=== PATIENT | male | born 1995 | race Caucasian/White ===

== ENCOUNTER 2017-07-09 10:21 | Emergency (ER) | payer OTHER ==
[2017-07-09 10:27] VITALS: TEMP 37.9
[2017-07-09] MEDS ORDERED: IBUP-103 PO (10:57)
[2017-07-09] MEDS ORDERED: PENI-82 PO (10:57)
[2017-07-09] MEDS ORDERED: KETOROLAC TROMETHAMINE 30 MG/ML VIAL IV STA (11:00)
[2017-07-09] MEDS ORDERED: AMPICILLIN/SULBACTAM SOD INJ 3,000 MG in SODIUM CHLORIDE 0.9% 100ML 100 ML IV ONE (11:00)
[2017-07-09] MEDS ORDERED: FENTANYL CITRATE INJ 50 MCG/1 ML 2 ML VIAL IV ONE (11:00)
[2017-07-09] MEDS ORDERED: SODIUM CHLORIDE 0.9% 1000ML 1,000 ML IV STA ×2 (11:00→13:07)
[2017-07-09] MEDS ORDERED: DEXAMETHASONE **PF** INJ 10 MG/ML VIAL IV ONE (11:00)
--- NOTE | 2017-07-09 11:11 | EMERGENCY ROOM VISIT NOTE ---
History Report prepared by Ramya: Sammy Estevez Under the Supervision of: Dr. Marcelo Ashby M.D. First contact with patient: 10:34 Chief Complaint: SORETHROAT Stated Complaint: SWOLLEN THROAT History of Present Illness The patient is a 22 year old white male with a past medical history of G6PD who presents to the ED with a cc of a worsening sore throat beginning a week ago. Positive swelling, productive cough, and voice change. Negative teeth pain. He was seen at [facility] and had blood work, and he was put on penicillin. He smokes, though he has not swollen for the past couple of weeks. Review of prior blood work shows a white count of 19 progressing to 24 Source of History: patient Onset: a week ago Position: throat Quality: other (sore) Timing: worsening Associated Symptoms: + cough Note: Associated symptoms: voice change Review of Systems See HPI for pertinent positives and negatives. A total of ten systems were reviewed and were otherwise negative. Past Medical & Surgical Medical Problems: (1) G6PD deficiency Social History Smoking Status: Current Every Day Smoker Marital Status: single Housing Status: lives with roommate Occupation Status: student Current/Historical Medications Scheduled Ibuprofen Tab (Advil), 400-600 MG PO Q6H Penicillin V Potassium (Veetids), 500 MG PO TID Allergies Coded Allergies: Sulfa Antibiotics (Verified Allergy, Severe, anaphylaxis, 07/09/17) Physical Exam Vital Signs Date Time Temp Pulse Resp B/P (MAP) Pulse Ox O2 Delivery O2 Flow Rate FiO2 07/09/17 14:38 102 17 148/88 97 07/09/17 12:59 111 20 148/81 97 Room Air 07/09/17 11:33 114 17 152/93 99 Room Air 07/09/17 10:27 37.9 151 16 15/95 96 Physical Exam GENERAL: Awake, alert, well-appearing, NAD HENT: Normocephalic, atraumatic. Right sided posterior oropharyngeal swelling. Tonsillar exudate on the right side. EYES: Normal conjunctiva. Sclera non-icteric. NECK: Supple. No nuchal rigidity. FROM. No stridor. RESPIRATORY: CTAB, no rhonchi, wheezing, crackles CARDIAC: RRR, no MRG ABDOMEN: Soft, NTND, BS+ MSK: No chest wall TTP, no LE edema NEURO: GCS 15, CN 2-12 intact, moves all 4s on command SKIN: No rash or jaundice noted. Medical Decision & Procedures ER Provider Diagnostic Interpretation: Radiology results as stated below per my review and radiologist interpretation: ADDENDUM Addendum: Impression #1 should read there is also a 6 mm left peritonsillar abscess. Electronically signed by: Silver Triana M.D. 07/09/2017 1:47 PM Dictated Date/Time: 07/09/2017 1:32 PM ORIGINAL REPORT SOFT TISSUE NECK WITH HISTORY: severe sore throat, rule out peritonsillar abscess TECHNIQUE: Multiaxial CT images of the neck were performed following the use of intravenous contrast. COMPARISON STUDY: None. FINDINGS: The visualized brain parenchyma and orbits are unremarkable. There are enlarged palatine tonsils which abut at the midline resulting in approximately 50% narrowing of the airway. There is associated peripheral enhancing 3.1 x 2.1 cm right peritonsillar abscess. There is also a 6 mm left peritonsillar abscess. There is hypertrophy of the adenoid tonsils. Prevertebral soft tissues and the epiglottis are normal in thickness. Mild bilateral cervical lymphadenopathy. However, the dominant right level 2 lymph node appears to demonstrate partial necrosis. This is best in image 98. The major cervical vessels are widely patent. The parotid and submandibular glands are symmetric. The thyroid gland enhances normally. The lung apices are clear. No suspicious lytic or blastic osseous lesions. The paranasal sinuses and mastoid air cells are clear. There is a single midline supernumerary tooth within the maxilla. IMPRESSION: 1. A dominant 3.1 x 2.1 cm right peritonsillar abscess. There is also a 6 cm left perihilar times are abscess. The enlarged palatine tonsils results in approximately 50% narrowing of the airway. 2. Mild bilateral cervical lymphadenopathy which is likely reactive. However, the dominant right level 2 lymph node appears to demonstrate partial necrosis. This is slightly atypical for an infectious process. Recommend follow-up neck CT in 3 months to ensure resolution. Electronically signed by: Silver Triana M.D. 07/09/2017 1:08 PM Dictated Date/Time: 07/09/2017 12:49 PM Laboratory Results 07/09/17 11:13 Red Blood Count 5.09, Mean Corpuscular Volume 86.6, Mean Corpuscular Hemoglobin 30.5, Mean Corpuscular Hemoglobin Concent 35.1, Mean Platelet Volume 10.0, Neutrophils (%) (Auto) 86.1, Lymphocytes (%) (Auto) 4.2, Monocytes (%) (Auto) 9.1, Eosinophils (%) (Auto) 0.1, Basophils (%) (Auto) 0.1, Neutrophils # (Auto) 20.33, Lymphocytes # (Auto) 0.98, Monocytes # (Auto) 2.14, Eosinophils # (Auto) 0.03, Basophils # (Auto) 0.02 07/09/17 11:13 Test 07/09/17 11:13 White Blood Count 23.60 K/uL (4.8-10.8) Red Blood Count 5.09 M/uL (4.7-6.1) Hemoglobin 15.5 g/dL (14.0-18.0) Hematocrit 44.1 % (42-52) Mean Corpuscular Volume 86.6 fL (80-100) Mean Corpuscular Hemoglobin 30.5 pg (25-34) Mean Corpuscular Hemoglobin Concent 35.1 g/dl (32-36) Platelet Count 381 K/uL (130-400) Mean Platelet Volume 10.0 fL (7.4-10.4) Neutrophils (%) (Auto) 86.1 % Lymphocytes (%) (Auto) 4.2 % Monocytes (%) (Auto) 9.1 % Eosinophils (%) (Auto) 0.1 % Basophils (%) (Auto) 0.1 % Neutrophils # (Auto) 20.33 K/uL (1.4-6.5) Lymphocytes # (Auto) 0.98 K/uL (1.2-3.4) Monocytes # (Auto) 2.14 K/uL (0.11-0.59) Eosinophils # (Auto) 0.03 K/uL (0-0.5) Basophils # (Auto) 0.02 K/uL (0-0.2) RDW Standard Deviation 35.2 fL (36.4-46.3) RDW Coefficient of Variation 11.2 % (11.5-14.5) Immature Granulocyte % (Auto) 0.4 % Immature Granulocyte # (Auto) 0.10 K/uL (0.00-0.02) Anion Gap 7.0 mmol/L (3-11) Estimated GFR () 137.2 Estimated GFR (Non- 118.4 BUN/Creatinine Ratio 12.3 (10-20) Calcium Level 10.0 mg/dl (8.5-10.1) Laboratory results reviewed by me Medications Administered Medications (Trade) Dose Ordered Sig/Sailaja Route Start Time Stop Time Status Last Admin Dose Admin Sodium Chloride 1,000 ml @ 999 mls/hr Q1H1M STAT IV 07/09/17 11:00 07/09/17 12:00 DC 07/09/17 11:21 999 MLS/HR Dexamethasone Sodium Phosphate (Dexamethasone Inj Pf) 10 mg NOW ONCE IV 07/09/17 11:00 07/09/17 11:05 DC 07/09/17 11:19 10 MG Ampicillin Sodium/ Sulbactam Sodium 3000 mg/Sodium Chloride 108 ml @ 200 mls/hr ONE ONCE IV 07/09/17 11:00 07/09/17 11:32 DC 07/09/17 11:35 200 MLS/HR Ketorolac Tromethamine (Toradol Inj) 30 mg NOW STAT IV 07/09/17 11:00 07/09/17 11:05 DC 07/09/17 11:21 30 MG Fentanyl Citrate (Fentanyl Inj) 50 mcg NOW ONCE IV 07/09/17 11:00 07/09/17 11:05 DC 07/09/17 11:19 50 MCG Metoclopramide HCl (Reglan Inj) 10 mg NOW STAT IV. 07/09/17 12:11 07/09/17 12:12 DC 07/09/17 12:57 10 MG Sodium Chloride 1,000 ml @ 999 mls/hr Q1H1M STAT IV 07/09/17 13:07 07/09/17 14:07 DC 07/09/17 13:20 999 MLS/HR Miscellaneous Information (Nursing Verbal Med Order) 1 ea ONE ONCE N/A 07/09/17 13:30 07/09/17 13:31 DC 07/09/17 13:20 1 EA Procedure Incision & Drainage Indication: Abscess. Location: R TWISTING FRAME OPERATOR Verbal consent was obtained after the risks and benefits were explained, including but not limited to bleeding, scarring, infection, pain, and bone/joint /nerve damage. At this time, the risks of the procedure are less than the risks of NOT performing the procedure. A time out was taken and the correct patient and site identified. Cetacaine spray was sprayed into the posterior pharynx to help w/ anesthesia. The abscess was further anesthetized with 5 ml of 1% lidocaine with epinephrine. The abscess cavity was entered with a number 11 blade and no purulent material expressed, only scant blood. Upon reassessment, this was hemostatic. Given the patient's impressive gag reflex, no further attempts were made. ED Course 1046: The patient was evaluated in room C5. A complete history and physical exam was performed. 1338: I unsuccessfully attempted to drain the TWISTING FRAME OPERATOR. 1408: I discussed the patient's case with Dr. Dobbins - ENT, and he wants the patient to follow up in the clinic today. 1415: I reevaluated the patient. Discussed results and discharge instructions: he verbalized understanding and agreement. The patient is ready for discharge. Medical Decision The patient is a 22 year old white male with a past medical history of G6PD who presents to the ED with a cc of a worsening sore throat beginning a week ago. Differential diagnosis: Etiologies such as viral syndrome, tonsillitis, streptococcal pharyngitis, mononucleosis, peritonsillar abscess, retropharyngeal abscess, otitis, pneumonia , influenza, as well as others were entertained. Patient was seen and evaluated the bedside. Patient has had a sore throats for approximately 1 week's time. Patient has been seen at [facility] 2 separate times and was started on penicillin. Patient has noticed voice changes and some sore throat. On exam the patient has a noticeable obvious peritonsillar swelling. Patient did have blood work that was completed. Patient does have an elevated white count, left shift, bandemia. Patient does have full range of motion of the neck. A CT soft tissue neck was obtained. Patient does have an elevated white blood cell count and bandemia. Patient was given dexamethasone, Toradol, and Unasyn. Patient's CT did show a peritonsillar abscess in the right that was fairly large. I did attempt a bedside I&D of this as it was fairly large. Patient had a fairly impressive gag reflex which made this difficult. The procedure was unsuccessful. I did discuss the patient's case with the ear nose and throat physician repairer controller tester who suggested that the patient come over for I&D in the office. Patient was discharged to the outpatient clinic. Medication Reconcilliation Current Medication List: was personally reviewed by me Blood Pressure Screening Patient's blood pressure: Elevated blood pressure Blood pressure disposition: Elevated BP felt to be situational Consults Time Called: 1400 Consulting Physician: Dr. Mu ZUNIGA Returned Call: 1408 I discussed the patient's case with Dr. Mu ZUNIGA, and he wants the patient to follow up in the clinic today. Impression Primary Impression: Peritonsillar abscess Additional Impressions: Sore throat Encounter for smoking cessation counseling Scribe Attestation The scribe's documentation has been prepared under my direction and personally reviewed by me in its entirety. I confirm that the note above accurately reflects all work, treatment, procedures, and medical decision making performed by me. Departure Information Dispostion Home / Self-Care Referrals No Doctor, Assigned (PCP) Adam Dobbins D.O. Forms HOME CARE DOCUMENTATION FORM, IMPORTANT VISIT INFORMATION Patient Instructions ED Peritonsillar Abscess, My [facility] Additional Instructions Please return to the emergency department if you have worsening or recurrent symptoms not amenable to at-home treatment. Please call for a follow-up appointment with her primary care physician. Please take your medications as prescribed. If you have other concerns and/or complaints please feel free to also call your primary care physician's office or return the ED for further evaluation, management, and treatment. You were found to have an elevated blood pressure today (>120 sytolic or >90 diastolic). Per medicare guidelines, you need to follow up with this blood pressure screening with your Primary Care Physician (PCP). For a new PCP call [phone]. Please follow the recommendations of the research and insights executive. You received narcotic or benzodiazepene medication while in the emergency room today. This is an addictive medication that may cause drowziness as well as constipation. Do not drive, operate heavy machinery, or drink alcohol under the influence of this medication. You may take 600 mg Ibuprofen every 6 hours as needed for pain with food for no more than 2 consecutive days. You may take tylenol 1000 mg every 6 hours as needed for pain. You may take motrin and tylenol separately or at the same time. Take your medications as prescribed. If taking an antibiotic consider taking a probiotic and/or eating yogurt, but at the least, please take with food as it can cause upset stomach. If culture results are not available at discharge, if they are positive for concern of infection, you will be informed of the results as soon as they are available. If you were seen between 11pm and 7AM all radiology reads will be re-read by our in house staff. If any major discrepancies are discovered, you will be notified. You have been examined and treated today on an emergency basis only. This is not a substitute for, or an effort to provide, complete comprehensive medical care. It is impossible to recognize and treat all injuries or illnesses in a single emergency department visit. It is therefore important that you follow up closely with [facility], your PCP, and/or your specialist(s). Call as soon as possible for an appointment. Thank you for your time and consideration. I look forward to speaking with you again soon. Please don't hesitate to call us if you have any questions. Problem Qualifiers
[2017-07-09] MEDS ORDERED: OPTIRAY 320 IV PRN (11:15)
[2017-07-09 11:27] LABS: HEMATOCRIT 44.1 % (42-52); HEMOGLOBIN 15.5 g/dL (14.0-18.0); MEAN CELL VOLUME 86.6 fL (80-100); MEAN CORPUSCULAR HEMOGLOBIN 30.5 pg (25-34); MEAN CORPUSCULAR HGB CONC 35.1 g/dl (32-36); PLATELET COUNT 381 K/uL (130-400); RED CELL DISTRIBUTION WIDTH CV 11.2 % (11.5-14.5); RED CELL DISTRIBUTION WIDTH SD 35.2 fL (36.4-46.3)
[2017-07-09 11:46] LABS: BLOOD UREA NITROGEN 11 mg/dl (7-18); CARBON DIOXIDE 27 mmol/L (21-32); CREATININE 0.91 mg/dl (0.60-1.40); GLUCOSE 129 mg/dl (70-99); POTASSIUM 3.7 mmol/L (3.5-5.1); SODIUM 130 mmol/L (136-145)
[2017-07-09 11:49] LABS: BASO % 0.1 %; BASO ABS # 0.02 K/uL (0-0.2); EOS % 0.1 %; EOS ABS # 0.03 K/uL (0-0.5); LYMPH % 4.2 %; LYMPH ABS # 0.98 K/uL (1.2-3.4); MONO % 9.1 %; MONO ABS # 2.14 K/uL (0.11-0.59); NEUT % 86.1 %; NEUT ABS # 20.33 K/uL (1.4-6.5)
[2017-07-09] MEDS ORDERED: BENZOCAINE/TETRACAIN/BUTAM CAN 200 APPLN/20 GM CAN EXT STA (12:09)
[2017-07-09] MEDS ORDERED: METOCLOPRAMIDE HCL INJ 5 MG/ML 2 ML VIAL IV. STA (12:11)
[2017-07-09] MEDS ORDERED: LIDOCAINE/EPINEPHRINE 1% 20 ML VIAL INFIL ONE (12:15)
--- NOTE | 2017-07-09 13:09 | DIAGNOSTIC IMAGING REPORT ---
ADDENDUM Addendum: Impression #1 should read there is also a 6 mm left peritonsillar abscess. Electronically signed by: Silver Triana M.D. 07/09/2017 1:47 PM Dictated Date/Time: 07/09/2017 1:32 PM ORIGINAL REPORT SOFT TISSUE NECK WITH HISTORY: severe sore throat, rule out peritonsillar abscess TECHNIQUE: Multiaxial CT images of the neck were performed following the use of intravenous contrast. COMPARISON STUDY: None. FINDINGS: The visualized brain parenchyma and orbits are unremarkable. There are enlarged palatine tonsils which abut at the midline resulting in approximately 50% narrowing of the airway. There is associated peripheral enhancing 3.1 x 2.1 cm right peritonsillar abscess. There is also a 6 mm left peritonsillar abscess. There is hypertrophy of the adenoid tonsils. Prevertebral soft tissues and the epiglottis are normal in thickness. Mild bilateral cervical lymphadenopathy. However, the dominant right level 2 lymph node appears to demonstrate partial necrosis. This is best in image 98. The major cervical vessels are widely patent. The parotid and submandibular glands are symmetric. The thyroid gland enhances normally. The lung apices are clear. No suspicious lytic or blastic osseous lesions. The paranasal sinuses and mastoid air cells are clear. There is a single midline supernumerary tooth within the maxilla. IMPRESSION: 1. A dominant 3.1 x 2.1 cm right peritonsillar abscess. There is also a 6 cm left perihilar times are abscess. The enlarged palatine tonsils results in approximately 50% narrowing of the airway. 2. Mild bilateral cervical lymphadenopathy which is likely reactive. However, the dominant right level 2 lymph node appears to demonstrate partial necrosis. This is slightly atypical for an infectious process. Recommend follow-up neck CT in 3 months to ensure resolution. Electronically signed by: Silver Traina M.D. 07/09/2017 1:08 PM Dictated Date/Time: 07/09/2017 12:49 PM
[2017-07-09] MEDS ORDERED: DiphenhydrAMINE HCL 50 MG/ML VIAL ONE (13:12)
[2017-07-09] MEDS ORDERED: NURSING VERBAL MED ORDER ONE (13:30)
[2017-07-09 14:38] VITALS: BP 148/88; PULSE 102; O2SAT 97
== END 2017-07-09 14:40 | disposition home or self-care (01) ==
LOC: C.EDB 10:23 → C.EDC 14:40
DX: J36 Peritonsillar abscess (principal); Z71.6 Tobacco abuse counseling; D55.0 Anemia due to glucose-6-phosphate dehydrogenase [G6PD] deficiency; F17.210 Nicotine dependence, cigarettes, uncomplicated; Z88.2 Allergy status to sulfonamides